=== PATIENT | female | born 1995 | race African-American/Black ===

== ENCOUNTER 2017-01-05 20:41 | Emergency (ER) | payer OTHER ==
[~2017-01-05] VITALS: Ht 162.6 cm; Wt 56.6 kg
[~2017-01-05 20:41] MED LIST: CARAFATE1 GM PO; FERROUS SULFAT325 MG PO; NEXIUM20 MG PO; PEPCID40 MG PO; PRENATAL MULTI1 EAC2 PO; PROMETHAZINE HC25 M1 PO; ZANTAC150 MG PO; ZOFRAN4 MG PO
[2017-01-05 21:20] LABS: MCH 27.7 PG (29.0-34.0); MCV 83.8 FL (83-99); MEAN PLAT.VOLUME 11.4 uM^3 (9.5-12.4); PLATELET COUNT 174 K/uL (156-360); RBC DIS.WIDTH-CV 15.9 % (11.8-14.6); RBC DIS.WIDTH-SD 48.2 % (39-53); RED BLOOD COUNT 3.58 M/uL (3.80-5.20); WHITE BLOOD COUNT 5.6 K/uL (4.1-10.2)
[2017-01-05 21:42] LABS: ADD MIUA? YES; BILIRUBIN NEGATIVE; BLOOD NEGATIVE; COLOR YELLOW ((YELLOW)); GLUCOSE (STRIP) NEGATIVE; KETONES NEGATIVE; LEUKOCYTES TRACE; NITRITE NEGATIVE; PROTEIN (STRIP) 30; SPECIFIC GRAVITY 1.016 (1.000-1.030)
[2017-01-05 21:47] LABS: BACTERIA RARE /HPF; CALCIUM OXALATE CRYSTALS 2+ /HPF; EPITHELIAL CELLS 1+ /HPF; MUCUS 2+ /LPF; RED BLOOD CELLS 0-5 /HPF (0-5); UCUL ADDED? NO; WHITE BLOOD CELLS 0-5 /HPF (0-5)
[2017-01-05] MEDS ORDERED: PRENATAL VITAM1 EA11 PO (22:35)
[2017-01-05 22:45] VITALS: BP 121/73
== END 2017-01-05 22:45 | disposition home or self-care (01) ==
LOC: EME 20:41
DX: O20.0 Threatened abortion (principal); O98.212 Gonorrhea complicating pregnancy, second trimester; R10.30 Lower abdominal pain, unspecified; O30.002 Twin pregnancy, unspecified number of placenta and unspecified number of amniotic sacs, second trimester; Z3A.15 15 weeks gestation of pregnancy; Z87.891 Personal history of nicotine dependence
CPT/HCPCS: 81003; 84702; 85027; 99281; 99283; J0696

== ENCOUNTER 2017-03-06 16:43 | Outpatient (CLI) | payer OTHER ==
[~2017-03-06 16:43] MED LIST changes: +PRENATAL VITAM1 EA11 PO
[2017-03-06 17:57] LABS: EOSINOPHIL (%) 2.1 % (0-5); EOSINOPHIL COUNT 0.1 K/uL (0-0.3); INSTRUMENT ABS NEUTROPHIL CT 2.4 K/uL; LYMPHOCYTE COUNT 1.4 K/uL (1.0-2.8); MCH 26.6 PG (29.0-34.0); MCV 83.1 FL (83-99); MEAN PLAT.VOLUME 11.5 uM^3 (9.5-12.4); MONOCYTE COUNT 0.4 K/uL (0-0.8); NEUTROPHIL (%) 55.1 % (45-76); NEUTROPHIL COUNT 2.4 K/uL (1.8-6.4); PLATELET COUNT 168 K/uL (156-360); RBC DIS.WIDTH-SD 42.2 % (39-53); RED BLOOD COUNT 3.01 M/uL (3.80-5.20); WHITE BLOOD COUNT 4.3 K/uL (4.1-10.2)
== END 2017-03-06 19:00 | disposition home or self-care (01) ==
LOC: LDRP-OP 16:43 → 2WEST 16:45
PROVIDERS: Obstetrics & Gynecology
DX: O26.872 Cervical shortening, second trimester (principal); Z3A.25 25 weeks gestation of pregnancy; O30.002 Twin pregnancy, unspecified number of placenta and unspecified number of amniotic sacs, second trimester
CPT/HCPCS: 59025; 85025; G0378; J0702

== ENCOUNTER 2017-03-07 13:56 | Outpatient (CLI) | payer OTHER ==
[2017-03-07 14:19] VITALS: BP 119/71
== END 2017-03-07 15:35 | disposition home or self-care (01) ==
LOC: LDRP-OP 13:56 → 2WEST 13:57 → LDRP-OP 07-27 21:33
DX: O26.872 Cervical shortening, second trimester (principal); Z3A.25 25 weeks gestation of pregnancy; O30.002 Twin pregnancy, unspecified number of placenta and unspecified number of amniotic sacs, second trimester
CPT/HCPCS: 59025; G0378

== ENCOUNTER 2017-04-03 15:09 | Inpatient (IN) | payer OTHER ==
[2017-04-03 15:15] VITALS: BP 124/70
[2017-04-03 16:08] LABS: EOSINOPHIL (%) 0.8 % (0-5); EOSINOPHIL COUNT 0.1 K/uL (0-0.3); HEMATOCRIT 28.6 % (36.0-46.0); IMMATURE GRANULOCYTE (%) 0.2 % (0.0-0.7); INSTRUMENT ABS NEUTROPHIL CT 3.7 K/uL; LYMPHOCYTE COUNT 1.6 K/uL (1.0-2.8); MCHC 30.8 G/DL (30.0-36.0); MEAN PLAT.VOLUME 11.6 uM^3 (9.5-12.4); MONOCYTE COUNT 0.5 K/uL (0-0.8); NEUTROPHIL (%) 63.2 % (45-76); NEUTROPHIL COUNT 3.7 K/uL (1.8-6.4); PLATELET COUNT 169 K/uL (156-360); RBC DIS.WIDTH-CV 15.2 % (11.8-14.6); RBC DIS.WIDTH-SD 43.4 % (39-53); WHITE BLOOD COUNT 5.9 K/uL (4.1-10.2)
[2017-04-03 16:15] LABS: MCV 78.1 FL (83-99); RED BLOOD COUNT 3.66 M/uL (3.80-5.20)
[2017-04-03 19:06] VITALS: BP 118/72
[2017-04-03 19:10] LABS: ADD MIUA? YES; BILIRUBIN NEGATIVE; BLOOD MODERATE; COLOR YELLOW ((YELLOW)); GLUCOSE (STRIP) NEGATIVE; KETONES 5; LEUKOCYTES LARGE; NITRITE NEGATIVE; PROTEIN (STRIP) NEGATIVE; SPECIFIC GRAVITY 1.019 (1.000-1.030); UROBILINOGEN 0.2 MG/DL (0.2-1.0)
[2017-04-03 19:31] LABS: BACTERIA RARE /HPF; EPITHELIAL CELLS 1+ /HPF; RED BLOOD CELLS 0-5 /HPF (0-5); UCUL ADDED? NO
[2017-04-03 19:32] LABS: MUCUS 2+ /LPF
[2017-04-03 23:20] VITALS: BP 113/68
[2017-04-04] VITALS (9 sets, daily range): BP systolic 113–126; BP diastolic 71–91
[2017-04-04] MEDS ORDERED: IBUPROFEN800 MG PO (04:45)
[2017-04-04] MEDS ORDERED: ENDOCET 5-3251 EACH PO (04:45)
[2017-04-04 09:10] LABS: EOSINOPHIL (%) 0 % (0-5); HEMATOCRIT 28.3 % (36.0-46.0); MCHC 30.4 G/DL (30.0-36.0); MCV 79.1 FL (83-99); MEAN PLAT.VOLUME 11.9 uM^3 (9.5-12.4); MONOCYTE (%) 4.8 % (3-12); NEUTROPHIL (%) 85.1 % (45-76); PLATELET COUNT 157 K/uL (156-360); RBC DIS.WIDTH-CV 14.8 % (11.8-14.6); RBC DIS.WIDTH-SD 42.5 % (39-53); RED BLOOD COUNT 3.58 M/uL (3.80-5.20); WHITE BLOOD COUNT 7.1 K/uL (4.1-10.2)
[2017-04-04 09:11] LABS: IMMATURE GRANULOCYTE (%) 0.3 % (0.0-0.7); LYMPHOCYTE COUNT 0.7 K/uL (1.0-2.8); MONOCYTE COUNT 0.3 K/uL (0-0.8)
[2017-04-05 03:00] VITALS: BP 119/73
[2017-04-05 05:47] LABS: EOSINOPHIL (%) 0.1 % (0-5); IMMATURE GRANULOCYTE (%) 0.4 % (0.0-0.7); INSTRUMENT ABS NEUTROPHIL CT 7.5 K/uL; MCH 23.9 PG (29.0-34.0); MCHC 30.8 G/DL (30.0-36.0); MCV 77.4 FL (83-99); MEAN PLAT.VOLUME 11.6 uM^3 (9.5-12.4); MONOCYTE (%) 8.7 % (3-12); MONOCYTE COUNT 0.8 K/uL (0-0.8); NEUTROPHIL (%) 80.1 % (45-76); NEUTROPHIL COUNT 7.5 K/uL (1.8-6.4); PLATELET COUNT 159 K/uL (156-360); RBC DIS.WIDTH-SD 42.1 % (39-53); WHITE BLOOD COUNT 9.4 K/uL (4.1-10.2)
[2017-04-06 07:15] VITALS: BP 123/66
[2017-04-06] MEDS ORDERED: FERROUS SULFAT325 MG PO (12:39)
[2017-04-06] MEDS ORDERED: DOCUSATE SODIU100 MG PO (12:39)
[2017-04-06] MEDS ORDERED: PERCOCET 5/31 TABLET PO (13:08)
[2017-04-06] MEDS ORDERED: MOTRIN800 MG PO (13:08)
== END 2017-04-06 14:38 | disposition home or self-care (01) | DRG 765 ==
LOC: LDRP-OP 15:09 → 2WEST 15:10 → LDRP-OP 07-27 15:40
PROVIDERS: Obstetrics & Gynecology Gynecology
PROC: 10D00Z0 Extraction of Products of Conception, High, Open Approach (ICD-10-PCS; principal; 2017-04-04)
DX: O60.14X1 Preterm labor third trimester with preterm delivery third trimester, fetus 1 (principal); O30.033 Twin pregnancy, monochorionic/diamniotic, third trimester; O60.14X2 Preterm labor third trimester with preterm delivery third trimester, fetus 2; Z37.2 Twins, both liveborn; O62.3 Precipitate labor; O99.02 Anemia complicating childbirth; O32.1XX2 Maternal care for breech presentation, fetus 2; D50.9 Iron deficiency anemia, unspecified; Z3A.29 29 weeks gestation of pregnancy
CPT/HCPCS: 81003; 85025; 86900; 86901; 88307; G0378; J0690; J0702; J1050; J1200; J2270; J2274; J2405; J3475; J7120

== ENCOUNTER 2018-04-08 11:00 | Emergency (ER) | payer SELFPAY ==
[~2018-04-08] VITALS: Ht 165.1 cm; Wt 56.6 kg
[~2018-04-08 11:00] MED LIST changes: +DOCUSATE SODIU100 MG PO; +ENDOCET 5-3251 EACH PO; +IBUPROFEN800 MG PO; +MOTRIN800 MG PO; +PERCOCET 5/31 TABLET PO
[2018-04-08 11:59] LABS: APPEARANCE CLEAR ((CLEAR)); BILIRUBIN NEGATIVE; BLOOD NEGATIVE; COLOR YELLOW ((YELLOW)); GLUCOSE (STRIP) NEGATIVE; KETONES 5; LEUKOCYTES NEGATIVE; NITRITE NEGATIVE; PROTEIN (STRIP) NEGATIVE; SPECIFIC GRAVITY 1.023 (1.000-1.030); UCUL ADDED? NO; UROBILINOGEN 0.2 MG/DL (0.2-1.0)
[2018-04-08 11:59] LABS: ALBUMIN 4.3 g/dL (3.2-4.8); CHLORIDE 108 mEq/L (99-109); POTASSIUM 3.8 mEq/L (3.7-5.4); SODIUM 140 mEq/L (136-147)
[2018-04-08 12:02] LABS: GLUCOSE 84 mg/dL (70-99)
[2018-04-08 12:04] LABS: TOTAL BILIRUBIN 0.4 mg/dL (0.0-1.0)
[2018-04-08 12:05] LABS: ALKALINE PHOSPHATASE 68 IU/L (3-129)
[2018-04-08 12:06] LABS: CREATININE 0.8 mg/dL (0.6-1.3); GFR ESTIMATE (CALCULATED) > 59 mL/min/
[2018-04-08 12:07] LABS: AST (GOT) 14 IU/L (2-34); UREA NITROGEN (BUN) 7 mg/dL (9-23)
[2018-04-08 12:08] LABS: ALT (GPT) 11 IU/L (3-49)
[2018-04-08 12:15] LABS: AMPHETAMINE NEGATIVE (500 ng/mL); BARBITURATES NEGATIVE (200 ng/mL); BENZODIAZEPINES NEGATIVE (150 ng/mL); BUPRENORPHINE NEGATIVE (10 ng/mL); COCAINE NEGATIVE (150 ng/mL); METHADONE NEGATIVE (200 ng/mL); METHAMPHETAMINE NEGATIVE (500 ng/mL); OPIATES (MORPHINE) NEGATIVE (100 ng/mL); OXYCODONE NEGATIVE (100 ng/mL); PHENCYCLIDINE NEGATIVE (25 ng/mL); PROPOXYPHENE NEGATIVE (300 ng/mL); THC CANNABINOIDS PRESUMPTIVE POSITIVE (50 ng/mL); TRICYCLIC ANTIDEPRESSANTS NEGATIVE (300 ng/mL)
[2018-04-08 12:15] LABS: QUANTITATIVE HCG < 4.0 MIU/ML
[2018-04-08 12:24] LABS: HEMATOCRIT 35.6 % (36.0-46.0); HEMOGLOBIN 10.5 G/DL (11.9-15.5); MCH 20.5 PG (29.0-34.0); MCHC 29.5 G/DL (30.0-36.0); MCV 69.7 FL (83-99); RBC DIS.WIDTH-CV 19.9 % (11.8-14.6); RBC DIS.WIDTH-SD 49.3 % (39-53); RED BLOOD COUNT 5.11 M/uL (3.80-5.20); WHITE BLOOD COUNT 5.6 K/uL (4.1-10.2)
[2018-04-08] MEDS ORDERED: MOTRIN600 MG PO (12:37)
[2018-04-08] MEDS ORDERED: ZOFRAN4 MG PO (12:37)
[2018-04-08] MEDS ORDERED: BENTYL20 MG PO (12:37)
[2018-04-08 13:01] VITALS: BP 133/90
[2018-04-08 13:07] LABS: HEMATOLOGY COMMENT 1 SN; PLAT.SUFFICIENCY ADEQUATE; PLATELET COUNT 273 K/uL (156-360)
== END 2018-04-08 13:02 | disposition home or self-care (01) ==
LOC: EME 11:00
PROVIDERS: Nurse Practitioner Family
DX: R51 Headache (principal); R10.84 Generalized abdominal pain; D64.9 Anemia, unspecified; R11.2 Nausea with vomiting, unspecified; M54.5 Low back pain
CPT/HCPCS: 72100; 80053; 81003; 84702; 84999; 85027; 99281; 99284; J0500; J1885